=== PATIENT | female | born 1960 | race Caucasian/White ===

== ENCOUNTER → 2017-08-25 | Outpatient (CLI) | payer OTHER ==
--- NOTE | 2017-08-25 12:48 | CT ---
EXAMINATION TYPE: CT cervical spine wo con DATE OF EXAM: 08/25/2017 COMPARISON: NONE HISTORY: Neck pain CT DLP: [address] of the cervical spine was performed with bone and soft tissue window settings submitted . Coronal and sagittal reconstruction is obtained. There is normal alignment and prevertebral soft tissues. I do not see evidence for fracture or sublu xation. Curvature is noted convex to the right. Moderate degenerative disc space narrowing at C4-5, C5-6, C6-7 and C7-T1. Posterior disc endplate com plex noted at C5-6 and C6-7 with effacement of the ventral thecal sac. No evidence for central stenos is. Right foraminal encroachment at C5-6 and on the left at C6-7. IMPRESSION: Degenerative disc disease with disc endplate complex as discussed above and foraminal enc roachment.
--- NOTE | 2017-08-25 13:02 | CT ---
EXAMINATION TYPE: CT lumbar spine wo con DATE OF EXAM: 08/25/2017 COMPARISON: NONE HISTORY: Low back pain CT DLP: [address] of the lumbar spine was performed. Bone and soft tissue window settings are submitted as well as coronal and sagittal reconstructions. L1-L2: Severe disc space narrowing with vacuum disc and endplate sclerosis and irregularity. Ventral and dorsal spondylosis. Posterior disc bulge with encapsulating spur resulting in disc endplate compl ex. Mild effacement ventral thecal sac without central stenosis. Mild right foraminal encroachment. L2-L3: Moderate disc desiccation with circumferential disc bulge greatest posteriorly. Effacement osiris tral thecal sac resulting in bilateral lateral recess stenosis and bilateral foraminal encroachment. L3-L4: Moderate disc desiccation with circumferential disc bulge greatest posteriorly. Effacement osiris tral thecal sac with hypertrophy of the ligamentum flavum and facet joint arthropathy resulting in mi ld central stenosis. Bilateral foraminal encroachment. L4-L5: Moderate disc desiccation. Grade 1 anterolisthesis L4 and L5 measuring 3 mm. Posterior disc bu lge with hypertrophy of the ligamentum flavum and facet joint arthropathy result in moderate to sever e central stenosis. L5-S1: Moderate disc desiccation. Grade 1 anterolisthesis of 3 mm. Mild posterior disc bulge. Mild ce ntral stenosis. Mild bilateral foraminal encroachment. No paraspinal masses are identified. Lumbar segments are free if fracture. IMPRESSION: 1. Degenerative disc space narrowing with disc bulging multilevel central stenosis as outlined above.
== END | disposition home or self-care (01) ==
LOC: RADCTMAIN 11:57
PROVIDERS: ATTEND Family Medicine
DX: M48.07 Spinal stenosis, lumbosacral region (principal); M51.17 Intervertebral disc disorders with radiculopathy, lumbosacral region; M50.10 Cervical disc disorder with radiculopathy, unspecified cervical region
CPT/HCPCS: 72125; 72131

== ENCOUNTER → 2020-11-13 | Outpatient (CLI) | payer MEDICARE, OTHER ==
[2020-11-13 14:26] LABS: ALT 11 U/L (4-34); AST 25 U/L (14-36); African American GFR (CKD) >90 (>60 ml/min/1.73 sqM); Albumin 4.3 g/dL (3.5-5.0); Alkaline Phosphatase 64 U/L (38-126); Anion Gap 7 mmol/L; Blood Urea Nitrogen 8 mg/dL (7-17); Calcium 9.4 mg/dL (8.4-10.2); Carbon Dioxide 28 mmol/L (22-30); Chloride 103 mmol/L (98-107); Glucose 134 mg/dL (74-99); HCT 36.5 % (34.0-46.0); HGB 12.4 gm/dL (11.4-16.0); MCH 30.1 pg (25.0-35.0); MCV 88.7 fL (80.0-100.0); Mean Platelet Volume 7.4; Non-African American GFR(CKD) >90 (>60 ml/min/1.73 sqM); Platelet Count 234 k/uL (150-450); Potassium 4.9 mmol/L (3.5-5.1); RBC 4.11 m/uL (3.80-5.40); RDW 14.2 % (11.5-15.5); Sodium 138 mmol/L (137-145); Total Bilirubin 0.3 mg/dL (0.2-1.3); WBC 4.6 k/uL (3.8-10.6)
[2020-11-13 14:31] LABS: Appearance,Urine Cloudy (Clear); Bacteria,Urine Rare /hpf; Bilirubin,Urine Negative (Negative); Blood,Urine Moderate (Negative); Color,Urine Light Yellow; Glucose,Urine (UA) Negative (Negative); Ketones,Urine Negative (Negative); Leukocyte Esterase,Urine Large (Negative); Mucus,Urine Rare /hpf; Nitrite,Urine Negative (Negative); Partial Thromboplastin Time 23.4 sec (22.0-30.0); Protein,Urine Negative (Negative); Prothrombin Time 10.5 sec (9.0-12.0); RBC,Urine 5 /hpf (0-5); Specific Gravity,Urine 1.005 (1.001-1.035); Squamous Epithelial Cell,Urine 7 /hpf (0-4); Urobilinogen,Urine <2.0 mg/dL (<2.0); WBC,Urine 14 /hpf (0-5)
== END | disposition home or self-care (01) ==
LOC: LABWHC1 13:30
PROVIDERS: ATTEND Orthopaedic Surgery Sports Medicine
DX: Z01.818 Encounter for other preprocedural examination (principal); M17.11 Unilateral primary osteoarthritis, right knee
CPT/HCPCS: 36415; 80053; 81001; 85027; 85610; 85730; 87070; 93005

== ENCOUNTER 2020-12-12 05:31 | Day surgery (SDC) | payer MEDICARE, OTHER ==
[2020-12-03 15:32] VITALS: BMI 24.7
[~2020-12-12 05:31] MED LIST: ACETAMINOPHEN TAB 500 MG TAB PO PRN; GABAPENTIN 300 MG CAP PO PRN; MELOXICAM 7.5 MG TAB PO PRN; ONDANSETRON 4 MG/2 ML VIAL IVP PRN; ROPIVACAINE/EPI/CLONIDINE/KET 50 ML SYRINGE MISCELLANE PRN; TRANEXAMIC ACID 1,000 MG in SODIUM CHLORIDE 0.9% 100 ML IVPB PRN
[2020-12-12] MEDS ORDERED: DEXAMETHASONE SOD PHOSPHATE 4 MG/ML 1 ML VIAL IV ONE (05:51)
[2020-12-12] MEDS ORDERED: ONDANSETRON 4 MG/2 ML VIAL IVP ONE (05:51)
[2020-12-12] MEDS ORDERED: MIDAZOLAM 2 MG/2 ML VIAL IV PRN (05:51)
[2020-12-12] MEDS ORDERED: HYDROmorphone 0.5 MG/0.5 ML SYRINGE IVP PRN ×2 (05:51→09:12)
[2020-12-12] MEDS ORDERED: LIDOCAINE 1% (10MG/ML) FOR IV START INTRADERMA ONE (06:00)
[2020-12-12] MEDS: LACTATED RINGERS 1,000 ML IV SCH ×3 (06:17→15:35)
[2020-12-12] MEDS ORDERED: SCOPOLAMINE 1.5MG/72HR PATCH TRANSDERM ONE (06:41)
[2020-12-12] MEDS ORDERED: MIDAZOLAM 2 MG/2 ML VIAL IVP ONE (06:45)
[2020-12-12] MEDS ORDERED: fentaNYL (PF) 50 MCG/ML 2 ML AMP IVP ONE (06:45)
[2020-12-12] MEDS ORDERED: PROPOFOL 10 MG/ML 20 ML VIAL IV ONE (07:00)
[2020-12-12] MEDS ORDERED: TRANEXAMIC ACID 1,000 MG/10 ML VIAL ONE (07:00)
[2020-12-12] MEDS ORDERED: PHENYLEPHRINE-0.9% NACL SYG 1,000 MCG/10 ML SYRINGE ONE (07:00)
[2020-12-12] MEDS ORDERED: fentaNYL (PF) 50 MCG/ML 2 ML AMP ONE (07:00)
[2020-12-12] MEDS ORDERED: MIDAZOLAM 2 MG/2 ML VIAL ONE (07:00)
[2020-12-12] MEDS ORDERED: SODIUM CHLORIDE 0.9% 100 ML BAG ONE (07:00)
[2020-12-12] MEDS ORDERED: ROPIVACAINE 5 MG/ML 30 ML VIAL ONE (07:00)
[2020-12-12] MEDS ORDERED: diphenhydrAMINE 50 MG/ML 1 ML VIAL ONE (07:00)
[2020-12-12] MEDS ORDERED: ceFAZolin 1,000 MG in SODIUM CHLORIDE 0.9% 1,000 ML IRRIGATION ONE (07:35)
[2020-12-12] MEDS ORDERED: LACTATED RINGERS 1,000 ML IV ONE (08:38)
[2020-12-12] MEDS ORDERED: ROPIVACAINE 0.2%-NS ON-Q PUMP 1,090 MG, EMPTY PAIN BALL 1 EACH MISCELLANE PRN (09:07)
[2020-12-12] MEDS ORDERED: NA PHOS,M-B/NA PHOS,DI-BA 133 ML ENEMA RECTAL PRN (09:12)
[2020-12-12] MEDS ORDERED: HYDROmorphone 1 MG/ML 1 ML SYRINGE IVP PRN (09:12)
[2020-12-12] MEDS ORDERED: HYDROmorphone 0.2 MG/1 ML SYRINGE IVP PRN (09:12)
[2020-12-12] MEDS ORDERED: bisacodyL 10 MG SUPP RECTAL PRN (09:12)
[2020-12-12] MEDS ORDERED: MAGNESIUM HYDROXIDE 2,400 MG/10 ML CUP PO PRN (09:12)
[2020-12-12] MEDS ORDERED: hydrOXYzine pamoate 25 MG CAP PO PRN (09:12)
[2020-12-12] MEDS ORDERED: traMADol 50 MG TAB PO PRN (09:12)
[2020-12-12] MEDS ORDERED: diazePAM 5 MG TAB PO PRN (09:12)
[2020-12-12] MEDS ORDERED: NALOXONE 0.4 MG/ML 1 ML VIAL IV PRN (09:12)
[2020-12-12] MEDS ORDERED: HYDROcodone/APAP 5-325MG 1 EACH TAB PO PRN (09:12)
[2020-12-12] MEDS ORDERED: ONDANSETRON 4 MG/2 ML VIAL IVP PRN (09:12)
--- NOTE | 2020-12-12 09:52 | XR ---
EXAMINATION TYPE: XR knee limited RT DATE OF EXAM: 12/12/2020 COMPARISON: None HISTORY: Postop abnormality and alignment, post knee replacement TECHNIQUE: 2 view right knee FINDINGS: Tibial and femoral components of place. No acute fractures are evident. Postsurgical change s are within soft tissues. IMPRESSION: 1. No acute fracture post knee replacement
--- NOTE | 2020-12-12 10:04 | OP ---
OPERATIVE REPORT DATE OF PROCEDURE: 12/12/2020. SURGEON: Francisco Siddiqui MD. EDITOR [employer]: Ramón CORONA. PREOP DIAGNOSIS: Right knee osteoarthrosis. POSTOPERATIVE DIAGNOSIS: Right knee osteoarthrosis. OPERATION: Right total knee arthroplasty. ANESTHESIA: Spinal sedation. ESTIMATED BLOOD LOSS: 100 mL. TOURNIQUET: Tourniquet time was 47 minutes at 250 mmHg. COMPLICATIONS: None apparent. DRAINS: None. DISPOSITION: Postanesthesia care unit. INDICATIONS: Edita is a 60-year-old female with longstanding history of right knee pain. History and physical examination are consistent with advanced right knee osteoarthrosis. She has been through significant nonoperative management up to this point. Further treatment options were discussed. She has decided to go forward with right total knee arthroplasty. Risks of procedure were discussed with her in detail. These risks included, but were not limited to risk of infection, nerve damage, bleeding, pain, and a small risk of deep vein thrombosis which could lead to fatal pulmonary embolism. There is also risk of loosening of the implant which could require revision operation. The patient understands these risks. All of her questions were answered to her satisfaction. Appropriate informed consent was obtained. DESCRIPTION OF THE PROCEDURE: The patient was identified in the preoperative holding area. Surgical site was marked by both the patient and myself. She was given 2 grams of Ancef IV for prophylactic purposes. She was then transferred to the operative suite. She was placed supine on the operative table. Spinal anesthetic was then administered and dosed per the anesthesia without apparent complication. Examination under anesthesia was then performed. The patient was 2-3 degrees shy of full extension. She had 100 degrees of flexion. Medial collateral ligament, lateral collateral ligament, posterior cruciate ligaments were stable. Tourniquet was then placed high on the right upper thigh well-padded in preparation for surgery. The patient's right lower extremity was then prepped and draped in usual sterile fashion. Standard surgical pause undertaken to ensure that we were operating on the correct site and that appropriate preoperative antibiotics were given. All staff in the room were in agreement and we proceeded. The outlines of patella were marked with a surgical pen. A planned 12 cm vertical incision centered over the patella was marked with a surgical pen. The leg was then exsanguinated with an Esmarch dressing. The knee was then flexed and the tourniquet was inflated to 250 mmHg. Total tourniquet time for the procedure was 47 minutes. Incision was then made with a 10 blade scalpel and dissection carried down sharply overlying fascia. Great care was taken to minimize the skin flaps. The knee was then exposed using a standard medial parapatellar approach. A small cuff of quadriceps tendon was left for suturing. She was in a bit of valgus preoperatively. A very minimal medial release was then made. The superficial medial collateral ligament was dissected off the bone very minimally just enough to place the medial retractors. The medial meniscus was then excised as well. The lateral meniscus was also released anteriorly. The leg was then externally rotated. The patella was everted. The knee was flexed. Retractors were then placed to protect the collateral ligaments. I then proceeded to remove the infrapatellar fat pad. This was excised sharply tangentially in line with fibers of the patellar tendon. I then proceeded to remove peripheral osteophytes. This was done with a rongeur. I then proceeded with the distal femoral resection. She had near full extension. A planned 9 mm resection was then done. The femoral canal was then entered and the femur approximately 10 mm anterior to the origin of the posterior cruciate ligament. The amanda was then advanced down the center of the femur and placed intramedullary. Based on preop radiographs, the angle between the anatomic and mechanical axis of the femur was approximately 4-5 degrees of valgus angle. The distal femoral cutting guide was then placed, set for 4 degrees for the right knee. The distal femoral cutting guide was then advanced over the intramedullary amanda. This was seated firmly against the femur. I then as mentioned planned to take 9 mm off the distal femur. The cutting block was then secured onto the femur with pins. The jig was then removed. Distal cut was made through the slot of the block. The pins were then removed. The distal cutting block was removed. The axis of the femoral cuts was checked with 2 flat bars. I then proceed with femoral sizing. Posterior referencing sizing guide was held firmly against the resected distal surface of the femur. Posterior condyles were resting on the posterior plane of the guide. The sizing guide was then placed on the anterior femur. The size measured size 5. for femoral rotation. Plan was for 3 degrees external rotation. Three degrees external rotation placed onto the jig. These holes were then marked. I then confirmed the rotation by 3 separate methods. This was done using epicondylar axis as well as Whitesides line and posterior referencing. It was deemed that the external rotation was proper. I then went forward placing the femoral cutting block. This was placed over the previously placed pin holes. The Wei wing was then placed on the anterior slots to ensure that we would not notch the anterior femur with the anterior femoral cut. I then proceeded with the anterior femoral cut. This was flush with the anterior cortex of the femur. A posterior cut was then made followed by the anterior chamfer cut, and the posterior chamfer cut. The cutting block was then removed. Throughout the resection, the collateral ligaments were protected with retractors. I then placed a trial size 5 femur. It fit very nice medial-lateral and fit flush with the distal end of the femur. The drill holes then made. I then proceeded with distal tibial cut. I planned for cruciate-retaining knee. The guide was placed and set for varus valgus and for slope. The height was set for approximate 2 mm resection from the lateral tibial plateau which was the lower side. I was happy with the alignment and the amount of resection. The cutting block was then pinned to the proximal tibia. The alignment rods were removed. The proximal tibia was resected with a reciprocating saw. Again, this was done with retractors protecting the collateral ligaments as well as the posterior cruciate ligament. I then proceeded to evaluate the flexion extension gaps. A 10 mm block was then placed. The flexion and extension gaps were equal. I then proceeded with resection of posterior osteophytes. Very minimal posterior osteophytes. This was done with a curved osteotome. This resected the posterior osteophytes. Posterior capsule stripping was done off the posterior aspect of the femur. Osteophytes were then removed. I then proceeded with resection of patella. The thickness of patella was measured using the caliper. The thickness was 22 mm. The thickness of the anticipated patellar dome was taken into account. Resection was then performed and confirmed to be equal in 4 quadrants using a caliper. Approximately 14 mm of bone remained after the resection. A 29 x 8 standard patellar trial was then placed. The holes drilled. The trial was then placed. I then proceeded with sizing tibial plate. A size D tibial plate fit very nicely. I then placed the trial femur in the tibial tray and patellar button. A 10 mm trial tibial insert was also placed. The components fit very nicely. She had full extension and flexion. The extension and flexion gaps were equal and stable to varus and valgus stress. The patella tracked appropriately. Tibial tray rotation was then marked with the Bovie. This externally rotated properly. I then proceed with tibial preparation. First drilled femoral holes, removed femoral component. The tibial tray was then set for proper external rotation as well as mediolateral placement onto the tibia. Then pinned into place. I then proceeded with punching the keel. I then decided proceed with cementing of all of our components. The knee was thoroughly irrigated with sterile saline solution via pulse lavage. The lateral geniculate artery was then identified and cauterized. All blood was removed from the bone of the tibia femur and patella with pulse lavage. I then proceeded with cementing. Two packs of antibiotic bone cement was prepared on the back table by the instructor adjunct surgical technician. I then proceeded with cemented tibia first. The cement was impacted in the keel as well as deeply seated in the bone. A second coat of cement was then placed. The tibia was then impacted into place. Excess cement was removed with Lupton's and Joker's. I then proceed with cemented femoral component. Femoral component was also cemented using standard technique. Excess cement was removed. A 10 mm trial insert was then placed into the knee. The knee was brought into full extension with a constant axial load placed until the cement had hardened. The patellar component was then cemented. This was held firmly with a compressive device until the cement had dried. When the cement had dried, the knee was taken out of extension. All excess cement was removed from around the prosthesis. I then trialed the knee with a 10 mm insert. The flexion and extension gaps were appropriate. Knee was stable. It came in full extension. I decided to go forward with a 10 mm cross-linked cruciate-retaining polyethylene insert. Polyethylene was then placed on the tibial tray and locked into place. The knee was then reduced. The knee was again further irrigated with sterile saline solution with antibiotic added. The tourniquet was then deflated. Total tourniquet time for the procedure was 47 minutes at 250 mmHg. Final components were Lakisha Persona size 5 cruciate-retaining femoral component, size D tibial tray, a 10 mm medial congruent cruciate-retaining polyethylene insert, and a 29 x 8 mm patella. I then proceeded with closure. Again, the knee was thoroughly irrigated. The quadriceps tendon and medial retinaculum were reapproximated with #2 Ethibond suture. The extensor mechanism was then closed with a running #2 Quill suture. Subcutaneous tissues were closed with 2-0 Vicryl interrupted suture. The skin was closed with a running 3-0 Quill suture. Dermabond applied to the incision. Sterile compressive dressing was then applied. All sponge and needle counts were deemed correct prior to closure. The patient tolerated procedure without apparent complication. She was transferred recovery room in stable condition. MMODL / IJN: [id number] /
--- NOTE | 2020-12-12 11:37 | P.ANPRN ---
Procedure Note - Anesthesia - Nerve Block Performed Right Adductor Canal Infusion Time Out Performed: Yes (645) Date of Procedure: 12/12/20 Procedure Start Time: 06:46 Procedure Stop Time: 06:51 Location of Patient: PreOp Indication: Acute Post-Operative Pain, Requested by Surgeon Specifically requested for management of pain by DrKrystal: Francisco Siddiqui Sedation Type: Sedate with meaningful contact maintained Preparation: Sterile Prep, Sterile Dressing Position: Supine Catheter Depth at Skin (cm): 7 Catheter: Indwelling Needle Types: Pajunk Needle Gauge: 21 Ultrasound used to visualize needle placement: Yes Ultrasound used to observe medication spread: Yes Injectate: 0.5% Ropivacaine (see comment for volume) (15cc) Blood Aspirated: No Pain Paresthesia on Injection Noted: No Resistance on Injection: Normal Image Stored and Saved: Yes Events: Uneventful and Well Tolerated Right iPack Single Time Out Performed: Yes (645) Date of Procedure: 12/12/20 Procedure Start Time: 06:52 Procedure Stop Time: 06:56 Location of Patient: PreOp Indication: Acute Post-Operative Pain, Requested by Surgeon Specifically requested for management of pain by DrKrystal: Francisco Siddiqui Sedation Type: Sedate with meaningful contact maintained Preparation: Sterile Prep Position: Supine Catheter: None Needle Types: Pajunk Needle Gauge: 21 Ultrasound used to visualize needle placement: Yes Ultrasound used to observe medication spread: Yes Injectate: 0.5% Ropivacaine (see comment for volume) (15cc) Blood Aspirated: No Pain Paresthesia on Injection Noted: No Resistance on Injection: Normal Image Stored and Saved: Yes Events: Uneventful and Well Tolerated
[2020-12-12] MEDS: HYDROcodone/APAP 10-325MG 1 EACH TAB PO PRN ×2 (14:13→21:08)
--- NOTE | 2020-12-12 20:01 | P.CONS ---
History of Present Illness - Reason for Consult Consult date: 12/12/20 - Chief Complaint Medical management - History of Present Illness 60 years old female patient of Dr. Agarwal with past medical history of rheumatoid arthritis, Jm disease, history of GERD and peptic ulcer disease comes in for elective repair of the right knee. Patient has significant pain in the knee that was limiting her functional activities. Since conservative management failed patient had elective knee arthroplasty today. Patient is seen postoperatively. Patient does complain of some fatigue but denies any pain in her knee. She denies any shortness of breath or chest pain or fever or chills. Patient denies any abdominal pain nausea or vomiting. Vitals are reviewed patient temp of 97.9 pulse 73 blood pressure 114/65 oxygen saturation 93 % on room air. No recent labs Review of Systems Constitutional: Denies chills, Denies fever, Denies lethargy, Denies malaise, Denies poor appetite, Denies weakness, Denies weight loss Eyes: denies decreased vision, denies diplopia, denies discharge, denies pain Ears: deny: decreased hearing Ears, nose, mouth and throat: Denies dental pain, Denies headache, Denies nasal discharge, Denies nose pain Cardiovascular: Denies chest pain, Denies decreased exercise tolerance, Denies edema, Denies high blood pressure, Denies irregular heart beat, Denies palpitations, Denies paroxysmal nocturnal dyspnea, Denies rapid heart beat, Denies shortness of breath Respiratory: Denies congestion, Denies cough, Denies cough with sputum, Denies dyspnea, Denies home oxygen, Denies wheezing Gastrointestinal: Denies abdominal pain, Denies change in bowel habits, Denies coffee ground emesis, Denies early satiety, Denies excessive gas, Denies heartburn, Denies hematemesis, Denies hematochezia, Denies loss of appetite, Denies nausea, Denies vomiting Genitourinary: Denies dysuria, Denies flank pain, Denies kidney stones, Denies menorrhagia, Denies urgency, Denies urinary frequency Musculoskeletal: Endorses gait dysfunction, endorses limitation of motion, Denies morning stiffness, Denies muscle cramps endorses right knee pain prior to surgery Integumentary: Denies rash, Denies wounds, Denies brittle nails, Denies change in hair/nails, Denies darkening of skin Neurological: Denies balance difficulties, Denies change in speech, Denies double vision, Denies gait dysfunction, Denies loss of vision, Denies motor disturbance, Denies numbness, Denies paralysis, Denies paresthesias, Denies seizures Psychiatric: Denies anxiety, Denies depression Endocrine: Denies excessive sweating, Denies excessive thirst, Denies high blood sugars, Denies palpitations Hematologic/Lymphatic: Denies easy bruising, Denies lymphadenopathy Past Medical History Past Medical History: Fibromyalgia, Osteoarthritis (OA), Rheumatoid Arthritis (RA) History of Any Multi-Drug Resistant Organisms: None Reported Past Surgical History: Hysterectomy, Joint Replacement Additional Past Surgical History / Comment(s): fady hip replacements, left shoulder replaced, cervical fusion, minimally invasive back surg. to relieve sciatic pain Past Anesthesia/Blood Transfusion Reactions: Motion Sickness, Postoperative Nausea & Vomiting (PONV) Past Psychological History: No Psychological Hx Reported Smoking Status: Former smoker Past Alcohol Use History: Occasional Additional Past Alcohol Use History / Comment(s): quit smoking >25 yrs. ago, smoked for about 15 yrs. 1ppd Past Drug Use History: None Reported - Past Family History Father Family Medical History: Cancer Additional Family Medical History / Comment(s): colon Brother(s) Family Medical History: Cancer Additional Family Medical History / Comment(s): brain,bone Medications and Allergies Home Medications Medication Instructions Recorded Confirmed Type Abatacept [Orencia Clickject] 125 mg SQ TH 12/03/20 12/12/20 History Meloxicam [Mobic] 15 mg PO DAILY 12/03/20 12/12/20 History Multivitamins, Thera [Multivitamin 1 tab PO DAILY 12/03/20 12/12/20 History (formulary)] Omeprazole [PriLOSEC] 10 mg PO DAILY 12/03/20 12/12/20 History Allergies Allergy/AdvReac Type Severity Reaction Status Date / Time acetaminophen [From Vicodin] Allergy Rash/Hives Verified 12/12/20 05:47 hydrocodone [From Vicodin] Allergy Rash/Hives Verified 12/12/20 05:47 Physical Exam Vitals: Vital Signs Temp Pulse Pulse Pulse Resp BP BP 12/12/20 14:15 97.9 F 73 18 114/65 12/12/20 13:00 70 16 99/61 12/12/20 12:01 66 16 101/63 12/12/20 11:30 72 16 122/77 12/12/20 11:00 63 16 97/67 12/12/20 10:45 64 16 110/71 12/12/20 10:32 61 16 101/65 12/12/20 10:16 66 16 106/70 12/12/20 10:00 60 16 111/73 12/12/20 09:50 61 16 104/70 12/12/20 09:34 61 16 115/70 12/12/20 09:19 66 16 103/69 12/12/20 09:04 96.8 F L 74 14 112/67 12/12/20 07:07 80 16 136/80 12/12/20 05:51 97.6 F 88 18 146/69 Pulse Ox 12/12/20 14:15 93 L 12/12/20 13:00 95 12/12/20 12:01 97 12/12/20 11:30 97 12/12/20 11:00 95 12/12/20 10:45 95 12/12/20 10:32 96 12/12/20 10:16 93 L 12/12/20 10:00 96 12/12/20 09:50 96 12/12/20 09:34 97 12/12/20 09:19 99 12/12/20 09:04 97 12/12/20 07:07 98 12/12/20 05:51 100 Intake and Output 12/12/20 12/12/20 12/12/20 06:59 14:59 22:59 Intake Total 200 1151 Output Total 100 Balance 200 1051 Intake: IV 200 1151 Output: Estimated Blood Loss 100 Other: Weight 97.6 kg 97.6 kg - Constitutional General appearance: cooperative, no acute distress, obese - EENT Eyes: anicteric sclerae, PERRLA, normal appearance ENT: hearing grossly normal - Neck Neck: no lymphadenopathy, normal ROM, no other, no rigidity, no stridor, no thyromegaly - Respiratory Respiratory: bilateral: CTA, negative: diminished, dullness, rales, rhonchi - Cardiovascular Rhythm: regular Heart sounds: normal: S1, S2 Abnormal Heart Sounds: no systolic murmur, no diastolic murmur, no rub, no S3 Ga llop, no S4 Gallop, no click, no other - Gastrointestinal General gastrointestinal: normal bowel sounds, soft - Integumentary Integumentary: no rash - Neurologic Neurologic: CNII-XII intact - Musculoskeletal Musculoskeletal: Right knee dressed no bruising noted. Peripheral pulses are palpable - Psychiatric Psychiatric: A&O x's 3, appropriate affect Assessment and Plan Plan: #1 postoperative day 0 right knee arthroplasty. Continue incentive spirometer. Pain medication per primary team. DVT prophylaxis with aspirin 81 mg twice a day. Valium to help with muscle spasm. #2 GERD with history of peptic ulcer disease hold meloxicam continue pantoprazole for 40 mg before meals breakfast #3 rheumatoid arthritis on abatacept. #4 history of Grace disease stable #5 Code status full code #6 DVT prophylaxis with aspirin 81 twice a day #7 GI prophylaxis with pantoprazole Thank you for the consult. I'll be happy to assist in patient's medical record patient in the hospital
[2020-12-12] MEDS ORDERED: TEMAZEPAM 15 MG CAP PO PRN (21:00)
[2020-12-12] MEDS ORDERED: SENNOSIDES-DOCUSATE SODIUM 1 EACH TAB PO SCH (21:00)
[2020-12-12] MEDS: ASPIRIN 81 MG PO SCH (21:08)
[2020-12-13] MEDS: LACTATED RINGERS 1,000 ML IV SCH ×2 (05:17→06:54)
[2020-12-13] MEDS: HYDROcodone/APAP 10-325MG 1 EACH TAB PO PRN ×2 (05:32→12:24)
--- NOTE | 2020-12-13 06:49 | P.PN ---
Progress Note - Text Progress Note Date: 12/13/20 Postoperative day # 1 status post total knee arthroplasty, and adductor canal catheter placed for postoperative analgesia, currently at ropivacaine 0.2% 8 mL per hour and continuous infusion, visual analogue scale is 3/10, patient using oral pain medication for breakthrough pain. Assessment and plan= Acute postoperative pain, adductor canal catheter for pain control, pain is well controlled we'll continue the same management.
[2020-12-13] MEDS ORDERED: PANTOPRAZOLE 40 MG TABLET PO SCH (07:30)
[2020-12-13 08:06] VITALS: BP 127/80; PULSE 66; RESP 17; TEMP 98.7
[2020-12-13] MEDS: ASPIRIN 81 MG PO SCH (08:40)
--- NOTE | 2020-12-13 10:41 | P.DS ---
Providers Expected date of discharge: 12/13/20 Attending physician: Francisco Siddiqui Consults: 12/12/20 09:12 Consult Physician Routine Consulting Provider: Isidro Cooper Reason/Comments: post op medical management Do you want consulting provider notified?: Yes Primary care physician: Lesa Agarwal - Discharge Diagnosis(es) (1) Status post total right knee replacement Patient was admitted to the OR on 12/12/20 to undergo a right total knee arthroplasty. She had failed conservative measures as an outpatient and desired to proceed with elective surgery after given informed consent. She underwent the above procedure which she tolerated well without complication. Postoperative hospital course has remained without complication. On day of discharge she is afebrile, vital signs stable, labs within acceptable ranges, tolerating by mouth meds and diet, voiding without difficulty, positive flatus, denies abdominal pain or calf pain, pain is controlled on oral pain medication and has no new complaints. Wound is benign, neurovascular status is intact, calf is soft and nontender, abdomen soft and nontender. Review of systems is negative for numbness, tingling, fever, chills, chest pain, shortness of breath, nausea, vomiting, dizziness, headaches, slurred speech or other. Current Visit: Yes Status: Acute Priority: Medium Procedures: Right TKA Patient Condition at Discharge: Good Plan - Discharge Summary Discharge Rx Participant: No New Discharge Prescriptions: New Aspirin [Adult Low Dose Aspirin EC] 81 mg PO BID #60 tablet. HYDROcodone/APAP 7.5-325MG [[place] 7.5-325] 1 - 2 each PO Q6HR PRN #42 tab PRN Reason: Pain Sennosides-Docusate Sodium [Senokot-S] 2 each PO HS tab Continue Meloxicam [Mobic] 15 mg PO DAILY Multivitamins, Thera [Multivitamin (formulary)] 1 tab PO DAILY Abatacept [Orencia Clickject] 125 mg SQ TH Omeprazole [PriLOSEC] 10 mg PO DAILY Discharge Medication List Abatacept [Orencia Clickject] 125 mg SQ TH 12/03/20 [History] Meloxicam [Mobic] 15 mg PO DAILY 12/03/20 [History] Multivitamins, Thera [Multivitamin (formulary)] 1 tab PO DAILY 12/03/20 [History] Omeprazole [PriLOSEC] 10 mg PO DAILY 12/03/20 [History] Aspirin [Adult Low Dose Aspirin EC] 81 mg PO BID #60 tablet. 12/13/20 [Rx] HYDROcodone/APAP 7.5-325MG [[place] 7.5-325] 1 - 2 each PO Q6HR PRN #42 tab 12/13/20 [Rx] Sennosides-Docusate Sodium [Senokot-S] 2 each PO HS tab 12/13/20 [Rx] Follow up Appointment(s)/Referral(s): Lesa Agarwal DO [Primary Care Provider] - 1 Week [facility], [NON-STAFF] - As Needed Francisco Siddiqui MD [STAFF PHYSICIAN] - 12/23/20 1:45 pm Patient Instructions/Handouts: *Surgery [facility] - On-Q Pain Pump Discharge Instructions, How to Use an Incentive Spirometer (DC), Joint Replacement Surgery (DC) Activity/Diet/Wound Care/Special Instructions: Keep wound clean and dry Take meds as directed Follow-up with Dr. Siddiqui in office Weight bear as tolerated May shower in 3 days if no bleeding Discharge Disposition: HOME WITH HOME HEALTH SERVICES
[2020-12-13 11:29] LABS: Basophils # (A) 0.02 X 10*3/uL (0.00-0.10); Basophils % (A) 0.3 %; Eosinophils # (A) 0.02 X 10*3/uL (0.04-0.35); Eosinophils % (A) 0.3 %; HCT 33.4 % (37.2-46.3); Lymphocytes # (A) 1.43 X 10*3/uL (0.90-5.00); Lymphocytes % (A) 19.2 %; MCH 29.3 pg (27.0-32.0); MCHC 32.9 g/dL (32.0-37.0); MCV 88.8 fL (80.0-97.0); Mean Platelet Volume 11.5 fL (9.5-12.2); Monocytes # (A) 0.72 X 10*3/uL (0.20-1.00); Monocytes % (A) 9.7 %; Neutrophils # (A) 5.25 X 10*3/uL (1.80-7.70); Neutrophils % (A) 70.2 %; Platelet Count 200 X 10*3/uL (140-440); RBC 3.76 X 10*6/uL (4.10-5.20); WBC 7.46 X 10*3/uL (4.50-10.00)
[2020-12-13] MEDS ORDERED: MULTIVITAMINS, THERA 1 EACH TAB PO SCH (12:00)
--- NOTE | 2020-12-14 14:01 | P.PN ---
Subjective Progress Note Date: 12/13/20 HISTORY OF PRESENT ILLNESS 60-year-old female patient of Dr. Agarwal with past medical history of rheumatoid arthritis, Jm disease, history of GERD and peptic ulcer disease comes in for elective repair of the right knee. Patient has significant pain in the knee that was limiting her functional activities. Since conservative management failed patient had elective knee arthroplasty today. Patient is seen postoperatively. Patient does complain of some fatigue but denies any pain in her knee. She denies any shortness of breath or chest pain or fever or chills. Patient denies any abdominal pain nausea or vomiting. Vitals are reviewed patient temp of 97.9 pulse 73 blood pressure 114/65 oxygen saturation 93 % on room air. No recent labs 12/13: Patient is postop day #1. She has been afebrile, heart rate 66, blood pressure 127/80, pulse ox 95% on room air. [place] today as of 11.0. Patient states her pain is controlled. She has worked well with physical therapy and is anticipating discharge home today. Medication reconciliation has been reviewed. Patient is clear for medicine for discharge. REVIEW OF SYSTEMS Constitutional: Denies chills, Denies fever, Denies lethargy, Denies malaise, Denies poor appetite, Denies weakness, Denies weight loss Eyes: denies decreased vision, denies diplopia, denies discharge, denies pain Ears: deny: decreased hearing Ears, nose, mouth and throat: Denies dental pain, Denies headache, Denies nasal discharge, Denies nose pain Cardiovascular: Denies chest pain, Denies decreased exercise tolerance, Denies edema, Denies high blood pressure, Denies irregular heart beat, Denies palpitations, Denies paroxysmal nocturnal dyspnea, Denies rapid heart beat, Denies shortness of breath Respiratory: Denies congestion, Denies cough, Denies cough with sputum, Denies dyspnea, Denies home oxygen, Denies wheezing Gastrointestinal: Denies abdominal pain, Denies change in bowel habits, Denies coffee ground emesis, Denies early satiety, Denies excessive gas, Denies heartburn, Denies hematemesis, Denies hematochezia, Denies loss of appetite, Denies nausea, Denies vomiting Genitourinary: Denies dysuria, Denies flank pain, Denies kidney stones, Denies menorrhagia, Denies urgency, Denies urinary frequency Musculoskeletal: Endorses gait dysfunction, endorses limitation of motion, Denies morning stiffness, Denies muscle cramps endorses right knee pain prior to surgery Integumentary: Denies rash, Denies wounds, Denies brittle nails, Denies change in hair/nails, Denies darkening of skin Neurological: Denies balance difficulties, Denies change in speech, Denies double vision, Denies gait dysfunction, Denies loss of vision, Denies motor di sturbance, Denies numbness, Denies paralysis, Denies paresthesias, Denies seizures Psychiatric: Denies anxiety, Denies depression Endocrine: Denies excessive sweating, Denies excessive thirst, Denies high blood sugars, Denies palpitations Hematologic/Lymphatic: Denies easy bruising, Denies lymphadenopathy PHYSICAL EXAMINATION Gen: This is a 60-year-old female. Patient is resting in chair and appears to be comfortable. HEENT: Head is atraumatic, normocephalic. Pupils equal, round. Sclerae is anicteric. NECK: Supple. No JVD. No lymphadenopathy. No thyromegaly. LUNGS: Clear to auscultation. No wheezes or rhonchi. No intercostal retractions. HEART: Regular rate and rhythm. No murmur. ABDOMEN: Soft. Bowel sounds are present. No masses. No tenderness. EXTREMITIES: No pedal edema. No calf tenderness. Small dressing in place to the right knee. NEUROLOGICAL: Patient is awake, alert and oriented x3. Cranial nerves 2 through 12 are grossly intact. ASSESSMENT AND PLAN #1 postoperative day 1 right knee arthroplasty. Continue incentive spirometer. Pain medication per primary team. DVT prophylaxis with aspirin 81 mg twice a day. Valium to help with muscle spasm. #2 GERD with history of peptic ulcer disease hold meloxicam continue pantoprazole for 40 mg before meals breakfast #3 rheumatoid arthritis on abatacept. #4 history of Jm disease stable #5 Code status full code #6 DVT prophylaxis with aspirin 81 twice a day #7 GI prophylaxis with pantoprazole DISCHARGE PLAN Home. Impression and plan of care have been directed as dictated by the signing physician. Ginger Cortez nurse practitioner acting as scribe for signing physician. Objective - Vital Signs Vital signs: Vital Signs Temp 98.7 F 12/13/20 06:51 Pulse 66 07/16/21 06:51 Resp 17 12/13/20 06:51 BP 127/80 12/13/20 06:51 Pulse Ox 95 12/13/20 06:51 Intake & Output 12/12/20 12/13/20 12/13/20 18:59 06:59 18:59 Intake Total 1151 Output Total 100 Balance 1051 Weight 97.6 kg Intake: IV 1151 Output: Estimated Blood Loss 100 Other: # Voids 3 - Labs CBC & Chem 7: 12/13/20 06:19 Labs: Abnormal Lab Results - Last 24 Hours (Table) 12/13/20 Range/Units 06:19 RBC 3.76 L (4.10-5.20) X 10*6/uL Hgb 11.0 L (12.0-15.0) g/dL Hct 33.4 L (37.2-46.3) % Eosinophils # 0.02 L (0.04-0.35) X 10*3/uL
== END 2020-12-13 12:44 | disposition home health service (06) ==
LOC: EDBD → OR 05:31 → 4SSUR 08:55 → OR 12-13 12:44
PROVIDERS: ATTEND Orthopaedic Surgery Sports Medicine
DX: M17.11 Unilateral primary osteoarthritis, right knee (principal); E27.1 Primary adrenocortical insufficiency; K21.9 Gastro-esophageal reflux disease without esophagitis; M06.9 Rheumatoid arthritis, unspecified; M62.838 Other muscle spasm; M79.7 Fibromyalgia; R53.83 Other fatigue; Z79.1 Long term (current) use of non-steroidal anti-inflammatories (NSAID); Z87.11 Personal history of peptic ulcer disease; Z87.891 Personal history of nicotine dependence; Z88.5 Allergy status to narcotic agent; Z96.651 Presence of right artificial knee joint
CPT/HCPCS: 27447; 97161; 64999; 64448; 76942; 85025; 88300; 73560; C1776; C1713; J2250; J1200; J1100; J0690 ×2; J2405 ×2; J3010; J2795 ×2; J2370; J2704; J1170

== ENCOUNTER 2022-12-04 08:40 | Day surgery (SDC) | payer MEDICARE ==
[2022-12-04] MEDS ORDERED: LACTATED RINGERS 1,000 ML IV SCH (08:58)
[2022-12-04 09:17] VITALS: RESP 16; TEMP 97.7
[2022-12-04] MEDS ORDERED: LIDOCAINE 1% (10MG/ML) FOR IV START INTRADERMA ONE (09:20)
[2022-12-04] MEDS ORDERED: PROPOFOL 10 MG/ML 20 ML VIAL IV ONE (09:55)
--- NOTE | 2022-12-04 10:07 | P.PCN ---
Date of Procedure: 12/04/22 Procedure(s) Performed: BRIEF HISTORY: Patient is a 62-year-old pleasant white female scheduled for an elective colonoscopy as a part of screening for colon cancer and family history of colon cancer. Her father and brother both were diagnosed with colon cancer in his 60s. PROCEDURE PERFORMED: Colonoscopy. PREOPERATIVE DIAGNOSIS: Screening for colon cancer and family history of colon cancer. IV sedation per Anesthesia. PROCEDURE: After informed consent was obtained, the patient, was brought into the endoscopy unit. IV sedation was administered by Anesthesia under continuous monitoring. Digital rectal examination was normal. Initially the Olympus CF-160 flexible video colonoscope was then inserted in the rectum, gradually advanced into the cecum without any difficulty. Careful examination was performed as the scope was gradually being withdrawn. Ileocecal valve and the appendiceal orifice were visualized and appeared normal. Prep was excellent. Mucosa of the cecum, ascending colon, transverse colon, descending colon, sigmoid colon, and rectum appeared normal. Retroflexion was performed in the rectum and no lesions were seen. The patient tolerated the procedure well. IMPRESSION: Normal-appearing colon from rectum to cecum with no evidence of colorectal neoplasia . RECOMMENDATIONS: Findings of this examination were discussed with the patient as well as her family. She was advised to have a repeat screening colonoscopy in 5 years because of family history of colon cancer.
[2022-12-04 11:09] VITALS: BP 96/48; PULSE 70
== END 2022-12-04 11:15 | disposition home or self-care (01) ==
LOC: ORWHC2ENDO 08:40
PROVIDERS: ATTEND Internal Medicine Gastroenterology
DX: Z12.11 Encounter for screening for malignant neoplasm of colon (principal); Z80.0 Family history of malignant neoplasm of digestive organs; Z88.5 Allergy status to narcotic agent
CPT/HCPCS: G0105; J2704